=== PATIENT | female | born 1950 | race Caucasian/White ===

== ENCOUNTER 2017-01-21 17:01 | Emergency (ER) | payer OTHER, MEDICARE ==
--- NOTE | 2017-01-21 18:16 | RAD ---
INDICATION: RIGHT leg swelling. COMPARISON: No relevant prior exams available on the [facility] PACS for comparison. TECHNIQUE: [place]ango scale, color Doppler, and spectral analysis of the deep veins of the RIGHT lower extremity. Vessel compression, phasicity, and augmentation assessed. REPORT: The RIGHT common femoral, great saphenous, profunda femoral, femoral, popliteal, peroneal, and posterior tibial veins are patent. Patency of the LEFT common femoral vein documented. IMPRESSION: No evidence for RIGHT lower extremity deep venous thrombosis.
[2017-01-21 18:26] VITALS: BP 125/65
[2017-01-21 18:33] LABS: Hematocrit 39 % (35-47); Hemoglobin 13.1 g/dl (12.0-16.0); Mean Corpuscular HGB Conc 34 g/dl (31-36); Mean Corpuscular Hemoglobin 31 pg (27-31); Mean Corpuscular Volume 92 fL (80-97); Mean Platelet Volume 9 um3 (7.4-10.4); Red Cell Distribution Width 14 % (10.5-15); White Blood Count 6.9 10^3/ul (3.5-10.8)
[2017-01-21 18:45] LABS: Albumin 3.9 g/dL (3.2-5.2); BUN/Creatinine Ratio 17.4 (8-20); Calcium 9.4 mg/dL (8.6-10.3); EGFR African American 84.4 (>60); EGFR Non-African American 65.6 (>60); Globulin 2.8 g/dL (2-4); Potassium 4.3 mmol/L (3.5-5.0); Total Bilirubin 0.6 mg/dL (0.2-1.0); Total Protein 6.7 g/dL (6.4-8.9)
--- NOTE | 2017-01-21 18:58 | ED ---
Lower Extremity - HPI Summary HPI Summary: 66F presents with swelling in right leg last night. She has been favoring her right leg as she had injection in right foot and foreign body removal for right foot. She is on beta armando for PVC and so has some baseline SOB that is not worst. She denies any chest pain or fever. She denies any spreading redness, bug bites. She denies any injury. She states she had swelling in calf last night and then develop pain in calf this morning. pain is 5/10. it is worst when places pressure on leg or touches area. she denies any numbness or tingling. She denies any recent travel. is on control low dose. on recent surgeries. sister had blood clot after surgery. - History of Current Complaint Chief Complaint: EDExtremityLower Stated Complaint: R/O DVT Time Seen by Provider: 01/21/17 17:32 Pain Intensity: 3 - Allergies/Home Medications Allergies/Adverse Reactions: Allergies Allergy/AdvReac Type Severity Reaction Status Date / Time Sulfa Antibiotics Allergy Severe Itching Verified 01/21/17 17:08 Vancomycin Allergy Severe Itching Verified 01/21/17 17:08 Gentamicin Allergy Unknown Unknown Verified 01/21/17 17:10 Reaction Details PMH/Surg Hx/FS Hx/Imm Hx Endocrine/Hematology History: Denies: Hx Anticoagulant Therapy Cardiovascular History: Reports: Other Cardiovascular Problems/Disorders - PVCs Infectious Disease History: No Infectious Disease History: Denies: Traveled Outside the [place] in Last 30 Days - Family History Known Family History: Positive: Other - blood clot in sister after surgery - Social History Alcohol Use: Occasionally Substance Use Type: Reports: None Smoking Status (MU): Never Smoked Tobacco Review of Systems Negative: Fever Negative: Chest Pain Negative: Shortness Of Breath - unchange baseline Positive: Myalgia - right calf, Edema - right calf All Other Systems Reviewed And Are Negative: Yes Physical Exam Triage Information Reviewed: Yes Vital Signs On Initial Exam: Initial Vitals Temp Pulse Resp BP Pulse Ox 97.6 F 55 16 132/57 98 01/21/17 17:05 01/21/17 17:05 01/21/17 17:05 01/21/17 17:05 01/21/17 17:05 Vital Signs Reviewed: Yes Appearance: Positive: Well-Appearing Skin: Positive: Warm, Dry Head/Face: Positive: Normal Head/Face Inspection Eyes: Positive: Normal, Conjunctiva Clear Respiratory/Lung Sounds: Positive: Clear to Auscultation, Breath Sounds Present Cardiovascular: Positive: Normal, RRR Musculoskeletal: Positive: Strength/ROM Intact - right ankle and knee, Leni Sign Right, Edema Right - mild edema, Other - good pulses, sensation grossly intact, has tenderness over posterior aspect of calf, capillary refill<2 secs - [place] Coma Scale Coma Scale Total: 15 Diagnostics - Vital Signs Vital Signs Temp Pulse Resp BP Pulse Ox 01/21/17 18:10 82 99 01/21/17 17:30 56 125/65 98 01/21/17 17:26 58 97 01/21/17 17:24 111/69 01/21/17 17:05 97.6 F 55 16 132/57 98 - Laboratory Lab Results: Lab Results 01/21/17 01/21/17 01/21/17 Range/Units 18:20 18:20 18:20 WBC 6.9 (3.5-10.8) 10^3/ul RBC 4.20 (4.0-5.4) 10^6/ul Hgb 13.1 (12.0-16.0) g/dl Hct 39 (35-47) % MCV 92 (80-97) fL MCH 31 (27-31) pg MCHC 34 (31-36) g/dl RDW 14 (10.5-15) % Plt Count 187 (150-450) 10^3/ul MPV 9 (7.4-10.4) um3 Neut % (Auto) 60.5 (38-83) % Lymph % (Auto) 26.6 (25-47) % [place] % (Auto) 10.0 H (1-9) % Eos % (Auto) 1.5 (0-6) % Baso % (Auto) 1.4 (0-2) % Absolute Neuts (auto) 4.2 (1.5-7.7) 10^3/ul Absolute Lymphs (auto) 1.8 (1.0-4.8) 10^3/ul Absolute Monos (auto) 0.7 (0-0.8) 10^3/ul Absolute Eos (auto) 0.1 (0-0.6) 10^3/ul Absolute Basos (auto) 0.1 (0-0.2) 10^3/ul Absolute Nucleated RBC 0 10^3/ul Nucleated RBC % 0.1 INR (Anticoag Therapy) 0.87 L (0.89-1.11) Sodium 133 (133-145) mmol/L Potassium 4.3 (3.5-5.0) mmol/L Chloride 96 L (101-111) mmol/L Carbon Dioxide 28 (22-32) mmol/L Anion Gap 9 (2-11) mmol/L BUN 15 (6-24) mg/dL Creatinine 0.86 (0.51-0.95) mg/dL Est GFR ( Amer) 84.4 (>60) Est GFR (Non-Af Amer) 65.6 (>60) BUN/Creatinine Ratio 17.4 (8-20) Glucose 99 (70-100) mg/dL Calcium 9.4 (8.6-10.3) mg/dL Total Bilirubin 0.60 (0.2-1.0) mg/dL AST 25 (13-39) U/L ALT 14 (7-52) U/L Alkaline Phosphatase 54 (34-104) U/L Total Protein 6.7 (6.4-8.9) g/dL Albumin 3.9 (3.2-5.2) g/dL Globulin 2.8 (2-4) g/dL Albumin/Globulin Ratio 1.4 (1-3) Result Diagrams: 01/21/17 18:20 01/21/17 18:20 Lab Statement: Any lab studies that have been ordered have been reviewed, and results considered in the medical decision making process. - Ultrasound No standard instances Ultrasound Interpretation: No Acute Changes Ultrasound Interpretation Completed By: Radiologist Lower Extremity Course/Dx - Course Course Of Treatment: 66F presents with swelling in right leg last night. She has been favoring her right leg as she had injection in right foot and foreign body removal for right foot. She is on beta armando for PVC and so has some baseline SOB that is not worst. She denies any chest pain or fever. She denies any spreading redness, bug bites. She denies any injury. She states she had swelling in calf last night and then develop pain in calf this morning. on exam pos homans sign. u/s normal. labs normal. patient understands and agrees with plan. - Diagnoses Differential Diagnosis/HQI/PQRI: Positive: DVT, Sprain, Strain Provider Diagnoses: Right calf pain Discharge - Discharge Plan Condition: Good Disposition: HOME Patient Education Materials: Leg Pain (ED) Additional Instructions: Ultrasound did not show a DVT Place ice on area Can use compression socks Take Tylenol for pain every 6 hours as needed Follow up with primary with 5 days Return to ED if develop any new or worsening symptoms
== END 2017-01-21 19:21 | disposition home or self-care (01) ==
LOC: ED 17:01
DX: M79.661 Pain in right lower leg (principal)
CPT/HCPCS: 36415; 80053; 85025; 85610; 99282